=== PATIENT | male | born 1980 | race Caucasian/White ===

== ENCOUNTER 2016-11-21 11:06 | Emergency (ER) | payer SELFPAY ==
[2016-11-21 12:07] LABS: APPEARANCE HAZY (CLEAR); BILIRUBIN NEGATIVE (NEGATIVE); COLOR YELLOW (YELLOW); GLUCOSE NEGATIVE (NEGATIVE); KETONE NEGATIVE (NEGATIVE); LEUKOCYTE ESTERASE NEGATIVE (NEGATIVE); NITRITE NEGATIVE (NEGATIVE); PROTEIN NEGATIVE (NEGATIVE); UROBILINOGEN NORMAL (NORMAL)
[2016-11-21 12:08] LABS: BACTERIA FEW /hpf (NONE SEEN); EPITHELIAL CELLS 0-5 /hpf (0-5); MUCUS >1+ /lpf (NONE SEEN); WHITE CELLS - URINE 0-5 /hpf (0-5)
[2016-11-21 12:09] LABS: AMORPHOUS SEDIMENT <1+ /lpf (NONE SEEN)
[2016-11-21 12:30] LABS: BASOPHILS 0.2 % (0.0-2.0); EOSINOPHILS 0.4 % (0-7); HEMATOCRIT 43.1 % (42.0-54.0); HEMOGLOBIN 14.6 g/dL (13.5-17.5); IMMATURE GRANULOCYTES 0.2 % (0-5); LYMPHOCYTES 28.3 % (15-50); MCH 31.9 pg (26.0-34.0); MCHC 33.9 g/dL (31.0-37.0); MCV 94.3 fL (80.0-100.0); MEAN PLATELET VOLUME 8.8 fL (7.4-10.4); MONOCYTES 7.5 % (2-11); NEUTROPHILS 63.4 % (40-80); PLATELET COUNT 292 10x3/uL (130-400); RBC 4.57 10x6/uL (4.20-6.10); RDW 12.9 % (11.5-14.5)
[2016-11-21 12:53] LABS: ALBUMIN 4.1 g/dL (3.4-5.0); ALKALINE PHOSPHATASE 62 U/L (46-116); ALT (SGPT) 29 U/L (10-68); BILIRUBIN - TOTAL 0.49 mg/dL (0.2-1.3); CALC OSMOLALITY 280 mosm/kg (275-300); CALCIUM 9.5 mg/dL (8.5-10.1); CARBON DIOXIDE 25.8 mmol/L (21.0-32.0); CHLORIDE - SERUM 105 mmol/L (98-107); CREATININE - SERUM 0.8 mg/dL (0.6-1.3); GLUCOSE 95 mg/dL (74-106); POTASSIUM - SERUM 4.5 mmol/L (3.5-5.1); PROTEIN - SERUM 8.1 g/dL (6.4-8.2); SODIUM 140 mmol/L (136-145); UREA NITROGEN 17 mg/dL (7-18); eGFR NON AFRICAN AMERICAN > 90 mL/min (90-120)
== END 2016-11-21 13:26 | disposition home or self-care (01) ==
LOC: D.ER 11:06
PROVIDERS: Emergency Medicine
DX: N23 Unspecified renal colic (principal); F17.200 Nicotine dependence, unspecified, uncomplicated

== ENCOUNTER 2017-05-24 17:44 | Emergency (ER) | payer SELFPAY ==
[2017-05-24 18:32] LABS: APPEARANCE CLEAR (CLEAR); BILIRUBIN NEGATIVE (NEGATIVE); COLOR YELLOW (YELLOW); GLUCOSE NEGATIVE (NEGATIVE); KETONE NEGATIVE (NEGATIVE); LEUKOCYTE ESTERASE NEGATIVE (NEGATIVE); NITRITE NEGATIVE (NEGATIVE); PROTEIN NEGATIVE (NEGATIVE); SPECIFIC GRAVITY 1.015 (1.005-1.020); UROBILINOGEN NORMAL (NORMAL)
[2017-05-24 18:35] LABS: BASOPHILS 0.7 % (0-2); EOSINOPHILS 4.1 % (0-7); HEMATOCRIT 41.6 % (42.0-54.0); HEMOGLOBIN 14.3 g/dL (13.5-17.5); IMMATURE GRANULOCYTES 0.2 % (0-5); LYMPHOCYTES 42.7 % (15-50); MCH 32.6 pg (26.0-34.0); MCHC 34.4 g/dL (31.0-37.0); MEAN PLATELET VOLUME 9.3 fL (7.4-10.4); MONOCYTES 6.8 % (2-11); NEUTROPHILS 45.5 % (40-80); PLATELET COUNT 282 10x3/uL (130-400); RBC 4.38 10x6/uL (4.20-6.10); RDW 12.6 % (11.5-14.5); WBC 5.6 10x3/uL (4.8-10.8)
[2017-05-24 18:36] LABS: UDS - AMPHET NEGATIVE QUAL (NEGATIVE); UDS - BARB NEGATIVE QUAL (NEGATIVE); UDS - BENZO POSITIVE QUAL (NEGATIVE); UDS - COCAINE NEGATIVE QUAL (NEGATIVE); UDS - METH NEGATIVE QUAL (NEGATIVE); UDS - OPIATE POSITIVE QUAL (NEGATIVE); UDS - PCP NEGATIVE QUAL (NEGATIVE); UDS - THC POSITIVE QUAL (NEGATIVE)
[2017-05-24 19:00] LABS: ALBUMIN 3.9 g/dL (3.4-5.0); ALKALINE PHOSPHATASE 64 U/L (46-116); ALT (SGPT) 35 U/L (10-68); BILIRUBIN - TOTAL 0.29 mg/dL (0.2-1.3); CALC OSMOLALITY 277 mosm/kg (275-300); CALCIUM 9.4 mg/dL (8.5-10.1); CARBON DIOXIDE 27.5 mmol/L (21.0-32.0); CHLORIDE - SERUM 103 mmol/L (98-107); CREATININE - SERUM 0.8 mg/dL (0.6-1.3); GLUCOSE 90 mg/dL (74-106); POTASSIUM - SERUM 3.8 mmol/L (3.5-5.1); PROTEIN - SERUM 7.8 g/dL (6.4-8.2); SODIUM 140 mmol/L (136-145); UREA NITROGEN 10 mg/dL (7-18); eGFR NON AFRICAN AMERICAN > 90 mL/min (90-120)
== END 2017-05-24 19:39 | disposition home or self-care (01) ==
LOC: D.ER 17:44
PROVIDERS: Emergency Medicine
DX: F41.9 Anxiety disorder, unspecified (principal)

== ENCOUNTER → 2018-07-17 11:53 | Outpatient (CLI) | payer MEDICAID | END | disposition home or self-care (01) | LOC: D.US 11:53 | DX: R10.11 Right upper quadrant pain (principal) ==

== ENCOUNTER 2018-08-15 19:21 | Emergency (ER) | payer MEDICAID ==
[~2018-08-15] VITALS: Ht 180.3 cm; Wt 93.2 kg
[2018-08-15 19:28] VITALS: Ht 180.3 cm; Wt 93.2 kg
[2018-08-15] MEDS ORDERED: REMERON30 MG PO (19:29)
[2018-08-15] MEDS ORDERED: REMERON15 MG PO (19:30)
[2018-08-15] MEDS ORDERED: VALIUM5 MG (19:30)
[2018-08-15] MEDS ORDERED: ULTRAM50 MG PO (20:31)
[2018-08-15] MEDS ORDERED: NAPROSYN500 MG PO (20:31)
[2018-08-15 21:09] VITALS: BP 125/72
== END 2018-08-15 21:11 | disposition home or self-care (01) ==
LOC: D.ER 19:21
DX: M53.3 Sacrococcygeal disorders, not elsewhere classified (principal); W10.9XXA Fall (on) (from) unspecified stairs and steps, initial encounter; Y93.89 Activity, other specified; Y92.019 Unspecified place in single-family (private) house as the place of occurrence of the external cause; F17.200 Nicotine dependence, unspecified, uncomplicated

== ENCOUNTER 2018-09-18 17:31 | Emergency (ER) | payer SELFPAY ==
[~2018-09-18] VITALS: Ht 180.3 cm; Wt 90.9 kg
[~2018-09-18 17:31] MED LIST: NAPROSYN500 MG PO; REMERON15 MG PO; REMERON30 MG PO; ULTRAM50 MG PO; VALIUM5 MG
[2018-09-18 17:55] VITALS: BP 145/91; Ht 180.3 cm; Wt 90.9 kg
[2018-09-18] MEDS ORDERED: BUSPAR 15 MG TA15 MG PO (17:57)
[2018-09-18 18:48] LABS: BASOPHILS 0.4 % (0-2); EOSINOPHILS 2.3 % (0-7); IMMATURE GRANULOCYTES 0.3 % (0-5); LYMPHOCYTES 33.4 % (15-50); MCH 31.2 pg (26.0-34.0); MCHC 34.2 g/dL (31.0-37.0); MCV 91.1 fL (80.0-100.0); MEAN PLATELET VOLUME 8.7 fL (7.4-10.4); MONOCYTES 9.5 % (2-11); NEUTROPHILS 54.1 % (40-80); PLATELET COUNT 293 10x3/uL (130-400); RBC 4.17 10x6/uL (4.20-6.10); RDW 13.6 % (11.5-14.5); WBC 7.4 10x3/uL (4.8-10.8)
[2018-09-18 18:52] LABS: APPEARANCE CLEAR (CLEAR); BILIRUBIN NEGATIVE (NEGATIVE); COLOR YELLOW (YELLOW); GLUCOSE NEGATIVE (NEGATIVE); KETONE NEGATIVE (NEGATIVE); NITRITE NEGATIVE (NEGATIVE); PROTEIN NEGATIVE (NEGATIVE); UROBILINOGEN NORMAL (NORMAL)
[2018-09-18 19:01] LABS: ALBUMIN 3.6 g/dL (3.4-5.0); ALKALINE PHOSPHATASE 63 U/L (46-116); ALT (SGPT) 35 U/L (10-68); BILIRUBIN - TOTAL 0.45 mg/dL (0.2-1.3); CALC OSMOLALITY 279 mosm/kg (275-300); CALCIUM 9.3 mg/dL (8.5-10.1); CARBON DIOXIDE 26.4 mmol/L (21.0-32.0); CHLORIDE - SERUM 105 mmol/L (98-107); CREATININE - SERUM 0.9 mg/dL (0.6-1.3); GLUCOSE 104 mg/dL (74-106); POTASSIUM - SERUM 3.7 mmol/L (3.5-5.1); PROTEIN - SERUM 7.6 g/dL (6.4-8.2); SODIUM 140 mmol/L (136-145); UREA NITROGEN 14 mg/dL (7-18); eGFR NON AFRICAN AMERICAN > 90 mL/min (90-120)
[2018-09-18 19:06] LABS: AMYLASE - SERUM 40 U/L (25-115); LIPASE 106 U/L (73-393); TROPONIN-I < 0.017 ng/mL (0.000-0.060)
== END 2018-09-18 20:05 | disposition left against medical advice (07) ==
LOC: D.ER 17:31
PROVIDERS: Emergency Medicine
DX: R07.9 Chest pain, unspecified (principal)

== ENCOUNTER 2019-12-06 12:39 | Emergency (ER) | payer OTHER ==
[~2019-12-06] VITALS: Ht 180.3 cm; Wt 90.9 kg
[~2019-12-06 12:39] MED LIST changes: +BUSPAR 15 MG TA15 MG PO
[2019-12-06 12:40] VITALS: Ht 180.3 cm; Wt 90.9 kg
[2019-12-06 12:59] LABS: BASOPHILS 0.7 % (0-2); EOSINOPHILS 0.8 % (0-7); HEMATOCRIT 43.5 % (42.0-54.0); HEMOGLOBIN 14.3 g/dL (13.5-17.5); IMMATURE GRANULOCYTES 0.3 % (0-5); LYMPHOCYTES 35.1 % (15-50); MCH 31.4 pg (26.0-34.0); MCHC 32.9 g/dL (31.0-37.0); MCV 95.6 fL (80.0-100.0); MEAN PLATELET VOLUME 8.7 fL (7.4-10.4); MONOCYTES 7.7 % (2-11); NEUTROPHILS 55.4 % (40-80); PLATELET COUNT 314 10x3/uL (130-400); RBC 4.55 10x6/uL (4.20-6.10); WBC 7.4 10x3/uL (4.8-10.8)
[2019-12-06 13:06] LABS: BILIRUBIN NEGATIVE (NEGATIVE); GLUCOSE NEGATIVE (NEGATIVE); KETONE NEGATIVE (NEGATIVE); NITRITE NEGATIVE (NEGATIVE); SPECIFIC GRAVITY 1.005 (1.005-1.020); UROBILINOGEN NORMAL (NORMAL)
[2019-12-06 13:07] LABS: CALC OSMOLALITY 278 mosm/kg (275-300); CALCIUM 9.7 mg/dL (8.5-10.1); CARBON DIOXIDE 25.7 mmol/L (21.0-32.0); CHLORIDE - SERUM 104 mmol/L (98-107); CREATININE - SERUM 0.9 mg/dL (0.6-1.3); GLUCOSE 81 mg/dL (74-106); POTASSIUM - SERUM 3.8 mmol/L (3.5-5.1); SODIUM 141 mmol/L (136-145); UREA NITROGEN 9 mg/dL (7-18); eGFR NON AFRICAN AMERICAN > 90 mL/min (90-120)
[2019-12-06 13:16] LABS: ALBUMIN 4.4 g/dL (3.4-5.0); ALKALINE PHOSPHATASE 63 U/L (30-120); ALT (SGPT) 49 U/L (10-68); AMYLASE - SERUM 44 U/L (25-115); BILIRUBIN - TOTAL 0.55 mg/dL (0.2-1.3); LIPASE 99 U/L (73-393); PROTEIN - SERUM 8.4 g/dL (6.4-8.2); TROPONIN-I < 0.017 ng/mL (0.000-0.060)
[2019-12-06] MEDS ORDERED: IBUPROFEN800 MG PO (15:19)
[2019-12-06] MEDS ORDERED: CYCLOBENZAPRINE10 MG PO (15:19)
[2019-12-06] MEDS ORDERED: PROTONIX40 MG PO (15:19)
[2019-12-06] MEDS ORDERED: ACETAMINOPHEN500 M1 PO (15:19)
[2019-12-06] MEDS ORDERED: LEVSIN/ANASP0.125 MG PO (15:19)
[2019-12-06 15:55] VITALS: BP 130/76
== END 2019-12-06 15:57 | disposition home or self-care (01) ==
LOC: D.ER 12:39
PROVIDERS: Family Medicine
DX: R10.11 Right upper quadrant pain (principal)